=== PATIENT | female | born 1990 | race Caucasian/White ===

== ENCOUNTER → 2016-08-27 | Outpatient (CLI) | payer BC | END | disposition home or self-care (01) | LOC: C.PAPS 18:04 | PROVIDERS: ATTEND Obstetrics & Gynecology | DX: Z01.419 Encounter for gynecological examination (general) (routine) without abnormal findings (principal) ==

== ENCOUNTER → 2016-08-27 | Outpatient (CLI) | payer BC ==
[2016-08-30 11:40] LABS: CHLAMYDIA TRACH RNA*** NOT DETECTED (NOT DETECTED); GC (NEIS GONORRHOEAE)RNA** NOT DETECTED (NOT DETECTED)
== END | disposition home or self-care (01) ==
LOC: C.LABSPEC 16:16
PROVIDERS: ATTEND Obstetrics & Gynecology
DX: Z01.419 Encounter for gynecological examination (general) (routine) without abnormal findings (principal)

== ENCOUNTER → 2017-09-10 | Outpatient (CLI) | payer OTHER | END | disposition home or self-care (01) | LOC: C.PAPS 11:49 | PROVIDERS: ATTEND Obstetrics & Gynecology | DX: Z01.419 Encounter for gynecological examination (general) (routine) without abnormal findings (principal) ==

== ENCOUNTER → 2017-09-10 | Outpatient (CLI) | payer OTHER | END | disposition home or self-care (01) | LOC: C.LABSPEC 10:43 | PROVIDERS: ATTEND Obstetrics & Gynecology | DX: Z01.419 Encounter for gynecological examination (general) (routine) without abnormal findings (principal) ==

== ENCOUNTER 2022-10-02 23:53 | Inpatient (IN) ==
[2022-10-03] MEDS ORDERED: LIDOCAINE 1% LOCAL 20 ML VIAL INFIL PRN (01:11)
[2022-10-03] MEDS ORDERED: PENICILLIN G POTASSIUM 6 MU in DEXTROSE 5% 250 ML IV STA (01:11)
[2022-10-03] MEDS ORDERED: OXYTOCIN 30 UNITS/500 ML BAG IV PRN ×2 (01:11→13:31)
--- NOTE | 2022-10-03 01:22 | History & Physical Report ---
Date of Service October 03, 2022 Assessment & Plan (1) Spontaneous rupture of amniotic membranes: Plan: 32 yo at 39.6 wks with SROM since 19:00 yesterday, mild irregular contractions with cervical change VSS Afebrile FHR categ I GBS + Plans for expectant management with no medications, no Oxytocin, no epidural Plan to admit, monitor, labs, PCN for GBS Discussed discussed risks of intraamniotic infection with augmentation of labor with Oxytocin compared to expectant management, but she politely declines it for now. (2) GBS (group B Streptococcus carrier), +RV culture, currently : (3) Irregular uterine contractions: History of Present Illness Primary Care Provider: NO PCP Patient is a 32 yo at 39.6 wks who felt small leakage around 7 pm last n ight and it got more and more after. Started to have mild irregular contractions about an hour later. Not painful at all. She called me around 9:30 pm and I recommended her to come in for evaluation for herself and status including presentation, FHR. She stated she wanted to labor at home for a few hours and then come in. She then presented to L&D Denies fever/ chills/ / abdominal pain/ DAMON/ N&V/ VB +FM's Her pad was + for Nitrazine and Amnisure is + Her has been uncomplicated except GBS + Allergies Allergy/AdvReac Type Severity Reaction Status Date / Time No Known Allergies Allergy Unverified 10/03/22 01:21 Home Medications Medication Instructions Recorded Confirmed Type xdtfehra-tak-Pi-FA 1 mg 1 tab PO DAILY 10/03/22 10/03/22 History tablet Patient History Social History Smoking Status: Never smoker Hx Alcohol Use: No Hx Substance Use: No Preferred Language: Tajik Communication Ability: Effective Certified Nurses Aide Required: No Beliefs That Will Affect Care: None marital status: Current Living Situation: Spouse Other Information That Helps Us Care for You: No Feels Safe at Home: Yes Safety Concerns: Feels Safe At This Time ON AIR PERSONALITY History No h/o STD;s, denies any h/o genital HSV/ chlamydia/ GC Review of Systems as per Subjective / HPI Physical Exam Constitutional: WD/WN, vitals as above well developed, well nourished and comfortable Gastrointestinal (Abdomen): normal bowel sounds, soft, nontender, no hepatosplenomegaly (GRAVID) Genitourinary: normal external appearance OB Exam Abdomen: + vertex Manual OB Exam: + cervical dilation 4 cm, + cervical effacement 80% and + station -1 OB Exam Monitor Tracing: + external uterine monitor used and + category I Results & Data Vital Signs (Past 12 Hours) Vital Signs Pulse Resp BP 10/03/22 00:05 20 10/03/22 00:03 75 139/86
[2022-10-03] MEDS: LACTATED RINGER'S 1,000 ML IV PRN ×2 (01:37→07:16)
[2022-10-03] MEDS ORDERED: BUTORPHANOL TARTRATE 1 MG/ML VIAL IV PRN (01:52)
[2022-10-03 02:08] LABS: Hematocrit (blood only) 37.2 % (37.0-47.0); Hemoglobin 12.8 g/dl (12.0-16.0); Mean Corpuscular Hemoglobin 30.5 pg (25.0-34.0); Mean Corpuscular Hgb Conc 34.4 g/dL (32.0-36.0); Mean Corpuscular Volume 88.8 fL (80.0-100.0); Mean Platelet Volume 10.8 fL (9.4-12.4); Platelet Count 226 K/uL (130-400); RDW Coefficient of Variation 13.1 % (11.5-14.5); RDW Standard Deviation 42.5 fL (36.4-46.3); Red Blood Count 4.19 M/uL (4.20-5.40)
[2022-10-03 02:10] LABS: Albumin Globulin Ratio 1.1 (0.9-2); Albumin Level 3.3 gm/dl (3.4-5.0); BUN Creatinine Ratio 26.3 (10-20); Bilirubin,Total 0.5 mg/dl (0.2-1.0); Calcium 8.8 mg/dl (8.6-10.3); Creatinine Clr Calc Pharmacy 160.3 ml/min; Est GFR (African American) 144.2 ml/min; Est GFR (Non-African American) 124.4 ml/min; Globulin 2.9 gm/dl (2.5-4.0); Potassium 4.1 mmol/L (3.5-5.1); Total Protein 6.2 gm/dl (6.0-8.3)
[2022-10-03] MEDS ORDERED: BUPIVACAINE 0.25% PF 30 ML VIAL ONE (04:16)
[2022-10-03] MEDS ORDERED: LIDOCAINE 2%/EPINEPHRINE 1:200,000 20 ML PF ONE (04:16)
[2022-10-03] MEDS ORDERED: fentaNYL 2MCG/ML ROPIVACAINE 1.25MG/ML 100 ML BAG EPI ONE (04:16)
[2022-10-03] MEDS ORDERED: SODIUM CHLORIDE 0.9% PF INJ 10 ML VIAL ONE (04:16)
[2022-10-03] MEDS ORDERED: fentaNYL citrate PF 100 MCG/2 ML VIAL ONE (04:16)
[2022-10-03] MEDS ORDERED: ePHEDrine sulfate 50 MG/ML AMP ONE (04:17)
[2022-10-03] MEDS ORDERED: diphenhydrAMINE 50 MG/ML VIAL IV PRN (04:29)
[2022-10-03] MEDS ORDERED: SODIUM CHLORIDE 0.9% PF INJ 10 ML VIAL EPI PRN (04:29)
[2022-10-03] MEDS ORDERED: ONDANSETRON INJ 2 MG/ML 2 ML VIAL IV PRN (04:29)
[2022-10-03] MEDS ORDERED: fentaNYL citrate PF 100 MCG/2 ML VIAL EPI PRN (04:29)
[2022-10-03] MEDS ORDERED: LIDOCAINE 2%/EPINEPHRINE 1:200,000 20 ML PF EPI STA (04:29)
[2022-10-03] MEDS ORDERED: BUPIVACAINE 0.25% PF 30 ML VIAL EPI STA (04:29)
[2022-10-03] MEDS ORDERED: BUPIVACAINE 0.25% PF 30 ML VIAL EPI PRN (04:29)
[2022-10-03] MEDS ORDERED: fentaNYL citrate PF 100 MCG/2 ML VIAL EPI STA (04:29)
[2022-10-03] MEDS ORDERED: NALBUPHINE HCL INJ 10 MG/ML AMP IV PRN (04:29)
[2022-10-03] MEDS ORDERED: ROPIVACAINE 0.5% PF 5 MG/ML 20 ML VIAL EPI PRN (04:29)
[2022-10-03] MEDS ORDERED: ePHEDrine sulfate 50 MG/ML AMP IV PRN (04:29)
[2022-10-03] MEDS ORDERED: LIDOCAINE 2% MPF LOCAL 5 ML VIAL EPI PRN (04:29)
[2022-10-03] MEDS ORDERED: NALOXONE HCL 0.4 MG/1 ML VIAL/CARP IV PRN (04:29)
[2022-10-03] MEDS ORDERED: fentaNYL 2MCG/ML ROPIVACAINE 1.25MG/ML 100 ML BAG EPI PRN (04:29)
[2022-10-03] MEDS ORDERED: SODIUM CHLORIDE 0.9% PF INJ 10 ML VIAL EPI STA (04:29)
[2022-10-03] MEDS ORDERED: NALOXONE HCL 1 MG in SODIUM CHLORIDE 0.9% 1000ML 1,000 ML IV PRN (04:29)
--- NOTE | 2022-10-03 04:32 | Anesthesiology Consultation ---
Date of Service October 03, 2022 Assessment & Plan Chart Review Chart Review: Acceptable Risk for Labor Epidural Consults Requested none ASA ASA2 Proposed Anesthesia Anesthesia Type: Labor Epidural Risk / Benefits Reviewed With: PT / POA / Parent / Guardian, Accepts Plan and Informed Consent Obtained History Height/Weight Height: 5 ft 7 in Weight: 83.461 kg Allergies Allergy/AdvReac Type Severity Reaction Status Date / Time No Known Allergies Allergy Unverified 10/03/22 01:21 Medications Home Medications Medication Instructions Recorded Confirmed Last Taken duefndhj-fci-Ea-FA 1 mg 1 tab PO DAILY 10/03/22 10/03/22 10/02/22 08:00 tablet Active Medications Generic Name Dose Route Start Last Admin Trade Name Freq PRN Reason Stop Dose Admin Lactated Ringer's 1,000 mls @ 150 mls/hr 10/03/22 01:11 10/03/22 04:10 Lr IV 10/05/22 01:10 999 mls/hr .[id number] PRN Infusion L&D Protocol Protocol Exercise / Class Metabolic Activity II 4-5 Yardwork/Stairs/Walk up hill Past Anesthesia History No Hx of Anesthesia Complications and No Family Hx of Anesthesia Complications History of PONV No Hx of PONV and No Hx of Motion Sickness Social History Smoking Status: Never smoker Hx Alcohol Use: No Hx Substance Use: No Physical Exam Vital Signs Last Vital Signs Temp 97.5 F L 10/03/22 04:11 Pulse 77 10/03/22 04:11 Resp 18 10/03/22 04:11 BP 133/80 10/03/22 04:11 ENMT Mouth: no dentition abnormality Thyromental Distance: > or= 3.5 Finger Breadths Mallampati Class: II Neck normal visual inspection Respiratory normal respiratory effort Auscultation: lungs clear to auscultation bilaterally Cardiovascular Rate/Rhythm: regular rate and regular rhythm Testing Laboratory Results 10/03/22 01:39 10/03/22 01:39
[2022-10-03] MEDS: PENICILLIN G POTASSIUM 3 MU in DEXTROSE 5% 100 ML IV PRN ×2 (05:24→09:46)
--- NOTE | 2022-10-03 12:56 | Anesthesia Procedure Note ---
Date of Service October 03, 2022 Anesthesia Post Epidural Note Vital Signs Vital Signs: Temp Pulse Resp BP Pulse Ox 36.9 C 95 H 20 148/73 H 94 10/03/22 12:29 10/03/22 12:50 10/03/22 12:29 10/03/22 12:12 10/03/22 12:50 Pain Intensity Abdomen: Pain Intensity: 2 Notes Mental Status: alert / awake / arousable Nausea / Vomiting: adequately controlled Pain: adequately controlled Airway Patency, RR, SpO2: stable & adequate BP & HR: stable & adequate Hydration State: stable & adequate Neuraxial Anesthesia: was administered and sensory block is resolving Anesthetic Complications: no major complications apparent and Pt Satisfied with anesthetic care Epidural: Removed without complications and With tip intact
[2022-10-03] MEDS ORDERED: HYDROCORTISONE ACETATE 25 MG SUPP PR PRN (13:31)
[2022-10-03] MEDS ORDERED: BENZOCAINE 20% AER SPR 82.5 GM CAN EXT PRN (13:31)
[2022-10-03] MEDS ORDERED: ACETAMINOPHEN 325 MG TAB PO PRN (13:31)
[2022-10-03] MEDS ORDERED: DIPHTHERIA/TETANUS/PERTUSSIS 0.5mL SYR/VIAL (Age 7+yrs) IM ONE (13:31)
[2022-10-03] MEDS ORDERED: bisacodyL 10 MG SUPP PR PRN (13:31)
--- NOTE | 2022-10-03 13:32 | Delivery Summary ---
Vaginal Delivery Summary Date of Service October 03, 2022 Vaginal Delivery Summary Delivery Note live male SOTO with delayed cord clamping and Apgars 8/9 wweight pending. Cord blood obtained followed by spontaneous delivery of intact placenta. No tears. EBL 100 ml. Final sponge and instrument count are correct. Mom and baby stable.
[2022-10-03] MEDS: DOCUSATE SODIUM 100 MG CAP PO SCH (21:42)
[2022-10-03] MEDS: IBUPROFEN 600 MG TAB PO PRN (23:57)
[2022-10-04 07:41] LABS: Hematocrit (blood only) 33.1 % (37.0-47.0); Hemoglobin 11.4 g/dl (12.0-16.0); Mean Corpuscular Hemoglobin 31.4 pg (25.0-34.0); Mean Corpuscular Hgb Conc 34.4 g/dL (32.0-36.0); Mean Corpuscular Volume 91.2 fL (80.0-100.0); Mean Platelet Volume 10.7 fL (9.4-12.4); Platelet Count 215 K/uL (130-400); RDW Coefficient of Variation 13.4 % (11.5-14.5); Red Blood Count 3.63 M/uL (4.20-5.40); White Blood Count 16.46 K/ul (4.8-10.8)
[2022-10-04] MEDS: FERROUS SULFATE 325 MG TAB PO SCH (08:19)
[2022-10-04] MEDS: PRENATAL VITAMIN 1 TAB PO SCH (08:19)
[2022-10-04] MEDS: DOCUSATE SODIUM 100 MG CAP PO SCH ×2 (08:19→20:44)
[2022-10-04] MEDS ORDERED: NON-FORMULARY MEDICATION (Prenatal Multivit-Min-Fe-Fa 1 mg Tablet) PO SCH (09:00)
--- NOTE | 2022-10-04 09:00 | Obstetrical Progress Note ---
Date of Service October 04, 2022 Assessment & Plan Admission and Anticipated Discharge Date Admission Date: October 03, 2022 Subjective Patient is seen and examined. She feels well, no complaints. Ambulating without dizziness Voiding without difficulty Tolerating regular diet with out N&V Bleeding is minimal No fever/ chills/ CP/ SOB/ N&V/ Leg pain Breast feeding without problems Vital Signs Temp Pulse Resp BP Pulse Ox O2 Del Method 10/04/22 03:25 36.8 C 71 18 124/76 96 Room Air 10/03/22 23:55 36.8 C 88 18 120/79 96 Room Air 10/03/22 21:40 36.7 C 88 18 127/75 96 Room Air Lab Results 10/03/22 10/03/22 10/03/22 Range/Units 00:36 01:15 01:39 WBC 14.00 H (4.8-10.8) K/ul RBC 4.19 L (4.20-5.40) M/uL Hgb 12.8 (12.0-16.0) g/dl Hct 37.2 (37.0-47.0) % MCV 88.8 (80.0-100.0) fL MCH 30.5 (25.0-34.0) pg MCHC 34.4 (32.0-36.0) g/dL RDW Std Deviation 42.5 (36.4-46.3) fL RDW Coeff of Sundeep 13.1 (11.5-14.5) % Plt Count 226 (130-400) K/uL MPV 10.8 (9.4-12.4) fL Sodium (136-145) mmol/L Potassium (3.5-5.1) mmol/L Chloride (98-107) mmol/L Carbon Dioxide (21-32) mmol/L Anion Gap (3-11) BUN (6-23) mg/dl Creatinine (0.6-1.2) mg/dl Est Cr Clr Drug Dosing ml/min Est GFR ( Amer) ml/min Est GFR (Non-Af Amer) ml/min BUN/Creatinine Ratio (10-20) Glucose (70-99(Fasting)) mg/dl Calcium (8.6-10.3) mg/dl Total Bilirubin (0.2-1.0) mg/dl AST (13-39) U/L ALT (7-52) U/L Alkaline Phosphatase (34-104) U/L Total Protein (6.0-8.3) gm/dl Albumin (3.4-5.0) gm/dl Globulin (2.5-4.0) gm/dl Albumin/Globulin Ratio (0.9-2) Amniotic Protein POS SARS-CoV-2, RNA, NAAT NEGATIVE (NEGATIVE) 10/03/22 10/04/22 Range/Units 01:39 07:05 WBC 16.46 H (4.8-10.8) K/ul RBC 3.63 L (4.20-5.40) M/uL Hgb 11.4 L (12.0-16.0) g/dl Hct 33.1 L (37.0-47.0) % MCV 91.2 (80.0-100.0) fL MCH 31.4 (25.0-34.0) pg MCHC 34.4 (32.0-36.0) g/dL RDW Std Deviation 44.0 (36.4-46.3) fL RDW Coeff of Sundeep 13.4 (11.5-14.5) % Plt Count 215 (130-400) K/uL MPV 10.7 (9.4-12.4) fL Sodium 137 (136-145) mmol/L Potassium 4.1 (3.5-5.1) mmol/L Chloride 106 (98-107) mmol/L Carbon Dioxide 21 (21-32) mmol/L Anion Gap 10 (3-11) BUN 15 (6-23) mg/dl Creatinine 0.57 L (0.6-1.2) mg/dl Est Cr Clr Drug Dosing 160.3 ml/min Est GFR ( Amer) 144.2 ml/min Est GFR (Non-Af Amer) 124.4 ml/min BUN/Creatinine Ratio 26.3 H (10-20) Glucose 88 (70-99(Fasting)) mg/dl Calcium 8.8 (8.6-10.3) mg/dl Total Bilirubin 0.5 (0.2-1.0) mg/dl AST 17 (13-39) U/L ALT 12 (7-52) U/L Alkaline Phosphatase 145 H (34-104) U/L Total Protein 6.2 (6.0-8.3) gm/dl Albumin 3.3 L (3.4-5.0) gm/dl Globulin 2.9 (2.5-4.0) gm/dl Albumin/Globulin Ratio 1.1 (0.9-2) Amniotic Protein SARS-CoV-2, RNA, NAAT (NEGATIVE) PE: General: Alert, orientedx3, NAD Abd: soft, NT, fundus firm, below Umbilicus Perineum intact, Lochia rubra minimal Ext; NT, no edema AP: 32 yo s/p , ppd# 1 VSS Afebrile doing well Continue routine care All questions were answered D/C home tomorrow Results & Data Vital Signs (Past 12 Hours) Vital Signs Temp Pulse Resp BP Pulse Ox O2 Del Method 10/04/22 03:25 36.8 C 71 18 124/76 96 Room Air 10/03/22 23:55 36.8 C 88 18 120/79 96 Room Air 10/03/22 21:40 36.7 C 88 18 127/75 96 Room Air
[2022-10-04] MEDS: IBUPROFEN 600 MG TAB PO PRN ×2 (12:42→20:46)
[2022-10-04] MEDS ORDERED: bisacodyL 5 MG TABEC PO SCH (20:00)
[2022-10-05 06:42] LABS: Basophils # (auto) 0.06 K/uL (0-0.2); Basophils % (auto) 0.5 %; Eosinophils # (auto) 0.28 K/uL (0-0.50); Eosinophils % (auto) 2.4 %; Hematocrit (blood only) 31.9 % (37.0-47.0); Immature Granulocytes # (auto) 0.06 K/uL (0.01-0.20); Immature Granulocytes % (auto) 0.5 %; Lymphocytes # (auto) 4.01 K/uL (1.2-3.4); Lymphocytes % (auto) 33.8 %; Mean Corpuscular Hemoglobin 31.1 pg (25.0-34.0); Mean Corpuscular Hgb Conc 34.5 g/dL (32.0-36.0); Mean Corpuscular Volume 90.1 fL (80.0-100.0); Mean Platelet Volume 10.6 fL (9.4-12.4); Monocytes # (auto) 0.75 K/uL (0.11-0.59); Monocytes % (auto) 6.3 %; Neutrophils % (auto) 56.5 %; Platelet Count 209 K/uL (130-400); RDW Coefficient of Variation 13.2 % (11.5-14.5); RDW Standard Deviation 43.6 fL (36.4-46.3); Red Blood Count 3.54 M/uL (4.20-5.40); White Blood Count 11.86 K/ul (4.8-10.8)
[2022-10-05] MEDS: FERROUS SULFATE 325 MG TAB PO SCH (09:06)
[2022-10-05] MEDS: DOCUSATE SODIUM 100 MG CAP PO SCH (09:06)
[2022-10-05] MEDS: PRENATAL VITAMIN 1 TAB PO SCH (09:06)
--- NOTE | 2022-10-05 09:17 | Obstetrical Progress Note ---
Date of Service October 05, 2022 Assessment & Plan (1) Normal course: Discharge home at this time, follow-up in clinic in 3 and 6 weeks Discharge instructions to be given to patient Subjective Ambulation: ambulating normally Voiding: no voiding problems Passing Gas:: Yes Diet Tolerance:: regular diet Lochia:: Small Feeding Type:: breast feeding Current Pain Level(1-10): 0 No complaints at this time, desires to go home Physical Exam Constitutional WD/WN, vitals as above Respiratory normal respiratory effort, lungs clear to auscultation Gastrointestinal (Abdomen) normal bowel sounds, soft, nontender, no hepatosplenomegaly Results & Data Vital Signs (Past 12 Hours) Vital Signs Temp Pulse Resp BP Pulse Ox O2 Del Method 10/05/22 08:25 36.9 C 65 20 113/72 10/04/22 23:08 36.6 C 65 18 122/74 98 Room Air Laboratory Results Laboratory Results WBC 11.86 K/ul (4.8-10.8) H 10/05/22 06:04 RBC 3.54 M/uL (4.20-5.40) L 10/05/22 06:04 Hgb 11.0 g/dl (12.0-16.0) L 10/05/22 06:04 Hct 31.9 % (37.0-47.0) L 10/05/22 06:04 MCV 90.1 fL (80.0-100.0) 10/05/22 06:04 MCH 31.1 pg (25.0-34.0) 10/05/22 06:04 MCHC 34.5 g/dL (32.0-36.0) 10/05/22 06:04 RDW Std Deviation 43.6 fL (36.4-46.3) 10/05/22 06:04 RDW Coeff of Sundeep 13.2 % (11.5-14.5) 10/05/22 06:04 Plt Count 209 K/uL (130-400) 10/05/22 06:04 MPV 10.6 fL (9.4-12.4) 10/05/22 06:04 Immature Gran % (Auto) 0.5 % 10/05/22 06:04 Neut % (Auto) 56.5 % 10/05/22 06:04 Lymph % (Auto) 33.8 % 10/05/22 06:04 [place] % (Auto) 6.3 % 10/05/22 06:04 Eos % (Auto) 2.4 % 10/05/22 06:04 Baso % (Auto) 0.5 % 10/05/22 06:04 Neut # (Auto) 6.70 K/uL (1.40-6.50) H 10/05/22 06:04 Lymph # (Auto) 4.01 K/uL (1.2-3.4) H 10/05/22 06:04 [place] # (Auto) 0.75 K/uL (0.11-0.59) H 10/05/22 06:04 Eos # (Auto) 0.28 K/uL (0-0.50) 10/05/22 06:04 Baso # (Auto) 0.06 K/uL (0-0.2) 10/05/22 06:04 Immature Gran # (Auto) 0.06 K/uL (0.01-0.20) 10/05/22 06:04 Sodium 137 mmol/L (136-145) 10/03/22 01:39 Potassium 4.1 mmol/L (3.5-5.1) 10/03/22 01:39 Chloride 106 mmol/L (98-107) 10/03/22 01:39 Carbon Dioxide 21 mmol/L (21-32) 10/03/22 01:39 Anion Gap 10 (3-11) 10/03/22 01:39 BUN 15 mg/dl (6-23) 10/03/22 01:39 Creatinine 0.57 mg/dl (0.6-1.2) L 10/03/22 01:39 Est Cr Clr Drug Dosing 160.3 ml/min 10/03/22 01:39 Est GFR ( Amer) 144.2 ml/min 10/03/22 01:39 Est GFR (Non-Af Amer) 124.4 ml/min 10/03/22 01:39 BUN/Creatinine Ratio 26.3 (10-20) H 10/03/22 01:39 Glucose 88 mg/dl (70-99(Fasting)) 10/03/22 01:39 Calcium 8.8 mg/dl (8.6-10.3) 10/03/22 01:39 Total Bilirubin 0.5 mg/dl (0.2-1.0) 10/03/22 01:39 AST 17 U/L (13-39) 10/03/22 01:39 ALT 12 U/L (7-52) 10/03/22 01:39 Alkaline Phosphatase 145 U/L (34-104) H 10/03/22 01:39 Total Protein 6.2 gm/dl (6.0-8.3) 10/03/22 01:39 Albumin 3.3 gm/dl (3.4-5.0) L 10/03/22 01:39 Globulin 2.9 gm/dl (2.5-4.0) 10/03/22 01:39 Albumin/Globulin Ratio 1.1 (0.9-2) 10/03/22 01:39 Amniotic Protein POS 10/03/22 01:15 SARS-CoV-2, RNA, NAAT NEGATIVE (NEGATIVE) 10/03/22 00:36
== END 2022-10-05 12:34 | disposition home or self-care (01) | DRG 807 ==
LOC: OPB 23:53 → 4S1 23:58 → MERGE 10-03 01:11 → 4S1 10-03 01:11 → 4E2 10-03 17:06